=== PATIENT | male | born 1970 | race Caucasian/White ===

== ENCOUNTER 2019-08-27 15:03 | Emergency (ER) | payer BC ==
[2019-08-27] MEDS ORDERED: DIPH/PERTUSS(ACELL)/TETANUS VAC/PF 0.5 ML SYR (>=10YO) IM ONE (15:35)
--- NOTE | 2019-08-27 15:37 | ER Document Report ---
ED Medical Screen (RME) - General Chief Complaint: Finger Injury Stated Complaint: FINGER PAIN Time Seen by Provider: 08/27/19 15:31 - HPI Notes: 08/27/19 15:35 Patient is a 49-year-old male no significant past medical history presents complaining of crush injury by hammer to his left pinky causing laceration to the anterior PIP joint area. I have treated and performed a rapid initial assessment of this patient. A comprehensive ED assessment and evaluation of the patient, analysis of test results and completion of medical decision making process will be conducted by additional ED providers. PHYSICAL EXAMINATION: GENERAL: Well-appearing, well-nourished and in no acute distress. A&Ox4. Answers questions appropriately. left 5th Finger: There is a laceration versus blowout injury noted to the anterior mid finger near the PIP joint. LROM to flexion due to pain. + swelling and ecchymosis. N/V intact distal otherwise. - Related Data Allergies/Adverse Reactions: No Known Allergies Allergy (Unverified 08/27/19 15:31) Past Medical History - Social History Chew tobacco use (# tins/day): No Frequency of alcohol use: Occasional Drug Abuse: None Physical Exam - Vital signs Vitals: Temp Pulse BP Pulse Ox 98.3 F 69 132/85 H 95 08/27/19 15:26 08/27/19 15:26 08/27/19 15:26 08/27/19 15:26 Course - Vital Signs Vital signs: Temp Pulse Resp BP Pulse Ox 98.3 F 69 132/85 H 95 08/27/19 15:26 08/27/19 15:26 08/27/19 15:26 08/27/19 15:26
--- NOTE | 2019-08-27 16:04 | RADIOLOGY REPORT (SQ) ---
EXAM DESCRIPTION: HAND LEFT 3 VIEWS COMPLETED DATE/TIME: 08/27/2019 3:54 pm REASON FOR STUDY: crush injury w. lac 5th anterior mid finger COMPARISON: None. EXAM PARAMETERS: NUMBER OF VIEWS: Three views. TECHNIQUE: AP, lateral and oblique radiographic images acquired of the left hand. LIMITATIONS: None. FINDINGS: MINERALIZATION: Normal. BONES: No acute fracture or dislocation. No worrisome bone lesions. JOINTS: No effusions. SOFT TISSUES: No soft tissue swelling. No foreign body. OTHER: No other significant finding. IMPRESSION: No fracture or dislocation of the left hand. Joint spaces are well preserved. No radio paque foreign body identified. TECHNICAL DOCUMENTATION: JOB ID: [id number] [email or web address] All Rights Reserved Reading location - IP/workstation name: [email or web address]
[2019-08-27] MEDS ORDERED: LIDOCAINE 1% INJ-PF (10 MG/ML) 30 ML SDV INJ ONE (17:14)
--- NOTE | 2019-08-27 17:27 | ER Document Report ---
HPI - HPI Time Seen by Provider: 08/27/19 15:31 Pain Level: 3 Notes: Patient is a 49-year-old male no significant past medical history presents complaining of crush injury by hammer to his left pinky causing laceration to the anterior DIP joint area. He is able to move his finger without difficulty otherwise. Denies drug allergies. Pain does not radiate. No other concerns or complaints. Denies any headache, fever, neck pain, URI, sore throat, chest pain, palpitations, syncope, cough, shortness of breath, wheeze, dyspnea, abdominal pain, nausea/vomiting/diarrhea, urinary retention, dysuria, hematuria, numbness/tingling, muscle paralysis/weakness, or rash. - ROS Systems Reviewed and Negative: Yes All other systems reviewed and negative - CONSTITUTIONAL Constitutional: DENIES: Fever, Chills - MUSCULOSKELETAL Musculoskeletal: REPORTS: Extremity pain - left Pinky Past Medical History - Social History Smoking Status: Never Smoker Chew tobacco use (# tins/day): No Frequency of alcohol use: Occasional Drug Abuse: None Family History: Reviewed & Not Pertinent Patient has suicidal ideation: No Patient has homicidal ideation: No Vertical Provider Document - CONSTITUTIONAL Agree With Documented VS: Yes Notes: PHYSICAL EXAMINATION: GENERAL: Well-appearing, well-nourished and in no acute distress. HEAD: Atraumatic, normocephalic. NECK: Normal range of motion, supple without lymphadenopathy. No midline tenderness. LUNGS: Breath sounds clear to auscultation bilaterally and equal. No wheezes rales or rhonchi. HEART: Regular rate and rhythm without murmurs, rubs, gallops. Musculoskeletal: Lt hand: + superficial 1cm laceration to the anterior distal finger near the DIP joint. No erythema, warmth, ecchymosis, deformity. N/V intact distal. FROM to passive/active. Strength 4+/5 to cena due to pain at 5th finger. No scaphoid tenderness. + tenderness prox 5th finger. Extremities: No cyanosis, clubbing, or edema b/l. Peripheral pulses 2+. Capillary refill less than 3 seconds. NEUROLOGICAL: Normal speech, normal gait. Normal sensory, motor exams otherwise unremarkable PSYCH: Normal mood, normal affect. SKIN: see above. No rash Course - Re-evaluation Re-evalutation: 08/27/19 Patient is an afebrile, well-hydrated, 49-year-old male who presents to the ED with a laceration to his left fifth finger. Vitals are acceptable. PE is other [place] unremarkable for any neurovascular compromise, obvious tendon/ligament rupture, obvious fracture/dislocation, septic joint. XR unremarkable. Patient is nontoxic-appearing and is tolerating p.o. without difficulties. Wound was thoroughly irrigated and cleansed. Wound edges were approximated appropriately utilizing 3 simple interrupted sutures. Wound dressing was placed with splint and wound instructions reviewed. Patient tolerated procedure well without any complications. Tetanus was updated today. No further labs or imaging warranted. Sutures will need removed in 10 days. Recheck with your PCM in 2-3 days. Consider consult orthopedics if needed. Return to the ED with any worsening/concerning symptoms otherwise as reviewed in discharge. Patient is in agreement. - Vital Signs Vital signs: Temp Pulse Resp BP Pulse Ox 98.3 F 69 132/85 H 95 08/27/19 15:26 08/27/19 15:26 08/27/19 15:26 08/27/19 15:26 Procedures - Laceration/Wound Repair Left Finger 5th digit Wound length (cm): 1 Wound's Depth, Shape: Superficial, Linear Laceration pre-procedure: Sterile PPE donned, Sterile drapes applied, Other - chlorhexadine/saline Anesthetic type: 1% Lidocaine Volume Anesthetic (mLs): 4 - digital block Wound explored: Clean, No foreign body removed Irrigated w/ Saline (mLs): 200 Wound Repaired With: Sutures Suture Size/Type: 4:0, Ethilon Number of Sutures: 3 Layer Closure?: No Post-procedure wound care: Sterile dressing applied, Splint applied Post-procedure NV exam normal: Yes Complications: No Discharge - Discharge Clinical Impression: Finger injury Qualifiers: Encounter type: initial encounter Laterality: left Qualified Code(s): S69.92XA - Unspecified injury of left wrist, hand and finger(s), initial encounter Condition: Stable Disposition: HOME, SELF-CARE Additional Instructions: Do not shower or bathe for 24 hours. After 24 hours you may shower but no submersion of the wound under water. Keep the original dressing on the wound for 24 hours unless the drainage soaks through. Change the dressing daily thereafter and keep the knots of the suture material clean from any dried discharge. You may leave the wound open to the air once there is no more discharge. See your PCM in 2-3 days for a recheck. Monitor for any signs of worsening pain or redness, purulent drainage, streaks, and/or fever. Return to the ED if noticing any of the above symptoms or as needed. Take medications as directed. Your sutures will need to be removed in 10 days. Prescriptions: Amox Tr/Potassium Clavulanate [Augmentin 875-125 Tablet] 1 tab PO BID 10 Days #20 tablet Forms: Elevated Blood Pressure Referrals: CECELIA KENDALL JR, DO [ACTIVE PROVISIONAL STAFF] - Follow up as needed
[2019-08-27 18:03] VITALS: BP 117/73
== END 2019-08-27 18:15 | disposition home or self-care (01) ==
LOC: ER 15:03
PROC: 0HQGXZZ Repair Left Hand Skin, External Approach (ICD-10-PCS; principal; 2019-08-27)
DX: S61.217A Laceration without foreign body of left little finger without damage to nail, initial encounter (principal); W22.8XXA Striking against or struck by other objects, initial encounter
CPT/HCPCS: 90471; 90715; 99283

== ENCOUNTER 2020-08-21 20:32 | Emergency (ER) | payer OTHER, BC ==
[2020-08-21 20:40] VITALS: BP 139/96
[2020-08-21] MEDS ORDERED: LIDOCAINE 1%/EPINEPHRINE INJ 20 ML VIAL INJ ONE (20:49)
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
[2020-08-21] MEDS ORDERED: CEPHALEXIN 500 MG CAPSULE PO ONE (21:25)
== END 2020-08-21 21:38 | disposition home or self-care (01) ==
LOC: ER 20:32
DX: S86.921A Laceration of unspecified muscle(s) and tendon(s) at lower leg level, right leg, initial encounter (principal); S81.811A Laceration without foreign body, right lower leg, initial encounter; W26.8XXA Contact with other sharp object(s), not elsewhere classified, initial encounter; Y93.89 Activity, other specified; Y99.0 Civilian activity done for income or pay; F12.10 Cannabis abuse, uncomplicated
CPT/HCPCS: 99283; 12002; J3490